=== PATIENT | male | born 1945 | race Caucasian/White ===

== ENCOUNTER 2022-02-12 12:36 | Outpatient (CLI) | payer OTHER, SELFPAY ==
--- NOTE | ~2022-02-12 | XR_ITS ---
EXAMINATION: XR barium swallow modified DATE: 02/12/2022 13:45 INDICATION: Dysphagia, unspecified TECHNIQUE: Modified barium esophagram was performed by myself to administered fluoroscopy, in conjun ction with speech pathologist who administered barium in varying consistencies as per speech patholog ist documentation. This was recorded on tape. A single fluoroscopic spot image was recorded. The DAP for this procedure was 2.4 Gycm2. Fluoroscopy exposure time was 2.4 minutes. FINDINGS: Oral stage: Adequate function. Pharyngeal phase: Adequate function. Laryngeal penetration: Trace. Aspiration: None. Laryngeal sensitivity: Not applicable. IMPRESSION: Essentially normal modified barium swallow. Please refer to speech pathologist findings a nd specific feeding recommendations. Reviewed, dictated and finalized at location A. IMPRESSION: Essentially normal modified barium swallow. Please refer to speech pathologist findings and specific feeding recommendations.
--- NOTE | 2022-02-12 16:43 | STOPEVAL ---
MODIFIED BARIUM SWALLOW EVALUATION: Thank you for referring Leonidas Sandy Serrano Jr. to [facility].? Attending Provider: Robinson Lilly, DO Modified Barium Swallow Evaluation Recent Swallowing History Reports Dysphagia Yes: food occasionally hangs up in throat Onset of Dysphagia couple of years ago Other Factors Impacting Dysphagia None History of Pneumonia No Reported Difficult Consistencies Solids Intake Method Prior to Swallow Oral Evaluation Diet Prior to Swallow Evaluation Regular, Level 7 Liquid Consistency Prior to Swallow Thin (0) Evaluation Consistency Solid Consistency Method of Presentation Spoon Oral Preparatory Symptoms None Oral Phase Symptoms None Pharyngeal Phase Symptoms None Severity of Vallecular Residue None - 0% No Residue Severity of Pyriform Sinus Residue None - 0% No Residue 8 Point Laryngeal Penetration-Aspiration Material Does Not Enter Airway Scale Cervical/Esophageal Symptoms None Mixed Consistency Method of Presentation Spoon Oral Preparatory Symptoms None Oral Phase Symptoms None Pharyngeal Phase Symptoms None Severity of Vallecular Residue None - 0% No Residue Severity of Pyriform Sinus Residue None - 0% No Residue 8 Point Laryngeal Penetration-Aspiration Material Does Not Enter Airway Scale Cervical/Esophageal Symptoms None Pureed Consistency Method of Presentation Spoon Oral Preparatory Symptoms None Oral Phase Symptoms None Pharyngeal Phase Symptoms None Severity of Vallecular Residue None - 0% No Residue Severity of Pyriform Sinus Residue None - 0% No Residue 8 Point Laryngeal Penetration-Aspiration Material Does Not Enter Airway Scale Cervical/Esophageal Symptoms None Thin Uncontrolled 2 Method of Presentation Straw Oral Preparatory Symptoms None Oral Phase Symptoms None Pharyngeal Phase Symptoms None Severity of Vallecular Residue None - 0% No Residue Severity of Pyriform Sinus Residue None - 0% No Residue 8 Point Laryngeal Penetration-Aspiration Material Does Not Enter Airway Scale Cervical/Esophageal Symptoms None Thin Uncontrolled 1 Method of Presentation Cup Oral Preparatory Symptoms None Oral Phase Symptoms None Pharyngeal Phase Symptoms Within Functional Limits, Laryngeal Penetration Severity of Vallecular Residue None - 0% No Residue Severity of Pyriform Sinus Residue None - 0% No Residue 8 Point Laryngeal Penetration-Aspiration Material Enters the Airway, Scale Remains Above Vocal Folds, is Ejected Pharyngeal Phase Comments flash (trace) penetration that
== END 2022-02-12 12:37 | disposition home or self-care (01) ==
LOC: ANHIMG 12:37
PROVIDERS: PCP Internal Medicine; Visit Provider Internal Medicine
DX: R13.10 Dysphagia, unspecified (principal)
CPT/HCPCS: 92611

== ENCOUNTER → 2022-02-12 13:48 | Outpatient (CLI) | payer OTHER, SELFPAY ==
--- NOTE | ~2022-02-12 | XR_ITS ---
XR chest 2V DATE: 02/12/2022 14:14 INDICATION: Shortness of breath TECHNIQUE: 2 views COMPARISON: 10/13/2018 AP and lateral chest FINDINGS: Moderate bilateral hyperinflation suggesting obstructive airways disease. There is chronic discoid scarring in the middle lobe. No pulmonary infiltrate or consolidation, pleural effusion or pu lmonary vascular congestion or pneumothorax is detected. Heart size is within normal range. There is a left anterior chest wall implanted monitor device. No hilar or mediastinal enlargement. There is mild aortic tortuosity. No hilar or mediastinal enlarge ment. Degenerative spurring of the thoracic spine. Diffuse osteopenia. IMPRESSION: Chronic scarring, middle lobe Bilateral hyperinflation, suggesting obstructive airways disease No active cardiopulmonary disease Reviewed, dictated and finalized at location A.
== END ==
PROVIDERS: PCP Internal Medicine; Visit Provider Internal Medicine Cardiovascular Disease
DX: R06.02 Shortness of breath (principal); M47.814 Spondylosis without myelopathy or radiculopathy, thoracic region; J98.4 Other disorders of lung; Q25.46 Tortuous aortic arch
CPT/HCPCS: 71046

== ENCOUNTER 2022-03-24 08:41 | Outpatient (CLI) | payer OTHER, SELFPAY ==
--- NOTE | 2022-03-24 11:15 | NEURO_ITS ---
Impression: # Insulin dependent diabetic of long duration complains of increasing numbness and decreasing strength. # Proximal/Distal motor and sensory axonal neuropathy. # Bilateral Carpal Tunnel Syndrome, left more than right Superimposed on underlying neuropathy # Abnormal needle/EMG exam with chronic denervation changes but no active fibrillations. Nerve Conduction Studies Anti Sensory Summary Table Stim Site NR Peak (ms) P-T Amp (?V) Site1 Site2 Delta-P (ms) Dist (cm) Vincent (m/s) Left Median Anti Sensory (2-3nd Digit) Wrist 9.2 6.0 Wrist 2-3nd Digit 9.2 14.0 15 Wrist 8.3 10.1 Wrist 2-3nd Digit 9.2 14.0 15 Right Median Anti Sensory (2-3nd Digit) Wrist 5.7 10.1 Wrist 2-3nd Digit 5.7 14.0 25 Wrist 5.8 5.3 Wrist 2-3nd Digit 5.7 14.0 25 Left Radial Anti Sensory (Base 1st Digit) Wrist 3.4 11.5 Wrist Base 1st Digit 3.4 0.0 Right Radial Anti Sensory (Base 1st Digit) Wrist 3.0 22.1 Wrist Base 1st Digit 3.0 0.0 Left Ulnar Anti Sensory (5th Digit) Wrist 3.7 21.8 Wrist 5th Digit 3.7 14.0 38 Right Ulnar Anti Sensory (5th Digit) Wrist 3.8 15.0 Wrist 5th Digit 3.8 14.0 37 Motor Summary Table Stim Site NR Onset (ms) O-P Amp (mV) Site1 Site2 Delta-0 (ms) Dist (cm) Vincent (m/s) Left Median Motor (Abd Poll Brev) Wrist 7.3 0.1 Elbow Wrist 12.6 35.0 28 Elbow 19.9 0.4 Right Median Motor (Abd Poll Brev) Wrist 5.2 0.8 Elbow Wrist 8.6 32.0 37 Elbow 13.8 0.3 Left Ulnar Motor (Abd Dig Minimi) Wrist 3.2 2.9 A Elbow Wrist 7.6 35.0 46 A Elbow 10.8 2.3 Right Ulnar Motor (Abd Dig Minimi) Wrist 3.4 3.0 A Elbow Wrist 8.7 32.0 37 A Elbow 12.1 1.6 F Wave Studies NR F-Lat (ms) L-R F-Lat (ms) Left Median (Mrkrs) (Abd Poll Brev) 35.50 0.64 Right Median (Mrkrs) (Abd Poll Brev) 36.14 0.64 Left Ulnar (Mrkrs) (Abd Dig Min) 39.20 1.43 Right Ulnar (Mrkrs) (Abd Dig Min) 37.78 1.43 EMG Side Muscle Nerve Root Ins Act Fibs Amp Dur Recrt Comment Right 1stDorInt Ulnar C8-T1 Nml Nml Nml >12ms Reduced Right Ext Indicis Radial (Post Int) C7-8 Nml Nml Nml >12ms Reduced Right Ext Digitorum Radial (Post Int) C7-8 Nml Nml Nml >12ms Reduced Right BrachioRad Radial C5-6 Nml Nml Nml >12ms Reduced Right PronatorTeres Median C6-7 Nml Nml Nml >12ms Reduced Right Abd Poll Brev Median C8-T1 Nml Nml Nml >12ms Reduced Left 1stDorInt Ulnar C8-T1 Nml Nml Nml >12ms Reduced Left Ext Indicis Radial (Post Int) C7-8 Nml Nml Nml >12ms Reduced Left Ext Digitorum Radial (Post Int) C7-8 Nml Nml Nml >12ms Reduced Left BrachioRad Radial C5-6 Nml Nml Nml >12ms Reduced Left PronatorTeres Median C6-7 Nml Nml Nml >12ms Reduced Left Abd Poll Brev Median C8-T1 Nml Nml Nml >12ms Reduced Right ABD Dig Min Ulnar C8-T1 Nml Nml Nml >12ms Reduced Left ABD Dig Min Ulnar C8-T1 Nml Nml Nml >12ms Reduced MTDD
== END 2022-03-24 08:42 | disposition home or self-care (01) ==
PROVIDERS: PCP Internal Medicine; Visit Provider Internal Medicine
DX: R20.2 Paresthesia of skin (principal); G62.9 Polyneuropathy, unspecified; G56.03 Carpal tunnel syndrome, bilateral upper limbs; R94.131 Abnormal electromyogram [EMG]
CPT/HCPCS: 95886; 95911